=== PATIENT | female | born 1960 | race Caucasian/White ===

== ENCOUNTER 2017-11-12 15:00 | Outpatient (RCR) | payer OTHER, SELFPAY ==
--- NOTE | 2017-10-12 08:04 | HP.PTEVAL_ITS ---
Patient's Visit Information NESTOR SARGENT is a 56 year old F referred to Physical Therapy by DO JEFFREY Edge with a diagnosis of R knee pain. Date of Evaluation: 10/12/17 Physical Therapist: Sushil Russo DPT, [place] - Visit Plan Frequency: 3x /Week Duration: 4-6 Weeks Plan: 3x/week for 2-4 for. ROM adn activity modification R knee. strength without pain R knee and hip. ES and ice as needed. Pt to see Trevin for opinion. - Subjective Subjective: 2 months knee has been bothering her which is not uncommonintermittently. Had big Thanksgiving and something popped in knee and excruciating pain. Iced adn elevated for the weekend and to doctor Thursday. Did not get better so went back after Ayaz. Did x-ray and has OA and bone spurs. Pain is daily and worse when she is up and on it. Swells at times. 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 Doing all home activities adn ADLs they just hurt. Steps are hard as she has old two story and they are painful. Runs in-laws to doctor and that takes alot of week. very involved at [employer] and still does stuff but suffers throguhh it. 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 Sleep is interrupted early on abut not since meds - Pain R knee pain Pain Intensity (Out of 10): 0 Pain Intensity Range: 0, 5 - Objective R knee antalgia in gait, steps very painful on R. I with gait and transfers. R knee -4 to 118. L knee 0-138. Hip and ankle AROM WFL. Tender to touch lateral>medial R knee line anterior. Decent flexibility. - R knee scour. Slight + bounce home. Strength is 4/5 in knees and 4- in hips, has some pain with R knee resisted ext. ankle strength 4+/5 - Goals Goal 1:: Full aROM R knee without pain Goal Time Frame: 4-6 Weeks Goal 2:: R knee pain 0-1/10 at worst and 75% better overall. Goal Time Frame: 4-6 Weeks Goal 3:: I approp HEP Goal Time Frame: 4-6 Weeks - Rehabilitation Potential Physical Therapy Diagnosis: R knee OA vs meniscal Rehabilitation Potential: Questionable - Anticipated Interventions Patient/Client Instruction: Educate patient on: Condition For the Purpose of:: To decrease pain, To increase ROM Therapeutic Exercise to Include: Strength training, Passive ROM, Active ROM For the Purpose of:: To decrease pain, To increase ROM, To improve ability of physical actions for home/community/work/leisure TENS: Yes Cryotherapy (ice pack, ice massage): Yes For the Purpose of:: To decrease pain, To increase ROM Thank you for the opportunity to evaluate your patient. For Medicare and Medicare HMO plans, please review the plan of care and approve it. It will need to be FAXED BACK to us at [phone] for Medicare purposes. Please let me know if there are questions or concerns regarding this plan of care. Physician Signature: Date:
--- NOTE | 2017-11-12 15:25 | HP.PTDCSUM ---
HP - PT D/C Summary It has been my pleasure to treat NESTOR SARGENT under orders from Mehreen Lovell DO, for the diagnosis of R knee pain for a total of 7 visit(s). Discharge Date: 11/12/17 Please see the following information for a summary of their discharge status. - Subjective Subjective: So-so. Weather changes make knee sore. Otherwise doing OK. Has been busy the last few weeks. did not get in water 3x/week but two times per week the last two. Did exercises at home. Pain 2/10 most days without any pain meds. Injection helped a lot at first but was told she needs a knee replacement at some point. - Pain R knee pain Pain Intensity (Out of 10): 2 - Overall Improvement % Improvement: 85 - Objective Objective/Function: Full aROM but end range L flexion painful. Walks without antalgia. Steps are reciprocal but painful L especially ascending. Strength Hips 4+/5 and knees 4+/5 - Goals Goal 1:: Full aROM R knee without pain Goal Progress: Progressing Goal 2:: R knee pain 0-1/10 at worst and 75% better overall. Goal Progress: Not Progressing Goal 3:: I approp HEP Goal Progress: Goal Met Goal 4:: 95% better with pain no worse than 1/10 for a week prior to leaving on vacation Goal Progress: Progressing - Plan Plan: D/C to HEP - D/C Information Discharge Comments: Pt going on a cruise. Soreness has stabilized at 2/10. Will contact doctor if it worsens again or effects her ex/activities If there are questions or concerns regarding this patient's physical therapy, please feel free to call me at [phone]. Thank you for the referral of this patient. Sincerely, Sushil Russo, DPT, [place]
== END 2017-11-12 19:00 | disposition home or self-care (01) ==
LOC: PT 15:00
DX: M25.561 Pain in right knee (principal)
CPT/HCPCS: 97110; 97161; 97530

== ENCOUNTER → 2019-02-01 10:14 | Outpatient (CLI) | payer OTHER, SELFPAY ==
--- NOTE | 2019-02-01 10:21 | RAD_ITS ---
STUDY: X-RAY - LEFT ANKLE REASON FOR EXAM: Female, 58 years old. Pain, no known injury TECHNIQUE: 3 view(s) of the ankle. COMPARISON: None. FINDINGS: Normal visualized distal tibia and fibula. Normal medial and lateral malleoli. Normal tibiotalar articulation and ankle mortise. Normal visualized talus and calcaneus. The visualized subtalar, talonavicular, calcaneocuboid and tarsal articulations are normal. The soft tissue structures are unremarkable. RAD/Ankle min 3 Views IMPRESSION: Normal x-ray examination of the ankle. Electronically Signed: Valentin Otero MD at 23:45 EDT , Service support ,
== END ==
PROVIDERS: Referring Provider Podiatrist; Visit Provider Podiatrist
DX: M19.072 Primary osteoarthritis, left ankle and foot (principal)
CPT/HCPCS: 73610

== ENCOUNTER → 2021-05-15 07:36 | Outpatient (CLI) | payer OTHER, SELFPAY ==
--- NOTE | 2021-05-15 07:40 | BI_ITS ---
MAMMOGRAPHY - BILATERAL SCREENING REASON FOR EXAM: Female, 60 years old. Routine annual screening examination. PERTINENT HISTORY: Non-contributory. TECHNIQUE: Digital bilateral breast maury (3D mammographic acquisition) in the CC and MLO projections. 2-D mediolateral oblique (MLO) and craniocaudad (CC) views of both breasts were obtained. CAD: Full Field Digital Mammography with Computer Added Detection was performed. COMPARISON: Comparison is made with prior study dated 03/16/2017 and 05/16/2011. FINDINGS: Breast Composition: There are scattered areas of fibroglandular density. There are no dominant masses or suspicious calcifications. No other significant abnormalities are identified. There has been no significant change since the prior study. BI/SCRN MAMM (CAD)W/MAURY BILAT IMPRESSION: Stable bilateral screening mammogram. Yearly follow-up mammogram recommended. (A) ASSESSMENT CATEGORY: BIRADS Category 1: Negative. A letter regarding these results will be sent to the patient by the facility within 30 days. Approximately 10% of breast cancers are not detected by mammography. A normal mammogram should not delay biopsy of a clinically suspicious abnormality. [id number] Electronically Signed: Kevyn Tolliver MD at 8:19 EDT , Service support ,
== END ==
DX: Z12.31 Encounter for screening mammogram for malignant neoplasm of breast (principal)
CPT/HCPCS: 77063; 77067

== ENCOUNTER → 2023-12-14 | Outpatient (CLI) | payer MEDICARE, OTHER, SELFPAY ==
[2023-12-14 10:36] LABS: Mucous, Urine 0 SEEN /hpf (<or=2+)
[2023-12-14 10:48] LABS: Color, Urine Yellow (Yellow); Glucose, Dipstick Normal (Normal); Ketone-Dipstick Negative (Negative); Leukocyte Esterase-Dipstick 500 /ul (Negative); Nitrite-Dipstick Negative (Negative); Occult Blood-Urine 50 /ul (Negative); Protein-Dipstick 30 mg/dl (Negative); Specific Gravity, Urine 1.005 (1.002-1.030); Urine Bilirubin Dipstick Negative (Negative); Urine Clarity Sl. Cloudy (Clear); Urine Urobilinogen Normal (Normal)
[2023-12-14 11:35] LABS: Bacteria 1+ /hpf (None Seen); Red Blood Cells-Urine 0-5 SEEN /hpf (0-5); Squamous Epithelial Cells - UA 0-5 SEEN /hpf (5-10); White Blood Cells 25-50 SEEN /hpf (0-5)
== END | disposition home or self-care (01) ==
LOC: LABSPEC 10:29
PROVIDERS: Referring Provider Physician Assistant; Visit Provider Physician Assistant
DX: R30.0 Dysuria (principal)
CPT/HCPCS: 81001; 87086; 87088; 87186

== ENCOUNTER → 2024-05-12 | Outpatient (CLI) | payer MEDICARE, OTHER, SELFPAY ==
--- NOTE | 2024-05-12 14:52 | US_ITS ---
STUDY: RENAL ULTRASOUND - COMPLETE REASON FOR EXAM: Female, 63 years old. UTI TECHNIQUE: Ultrasound evaluation of the kidneys was performed with real-time and static tovar-scale imaging. COMPARISON: None. FINDINGS: RIGHT KIDNEY: Normal location of the right kidney, which is normal in size. The right kidney measures 11.0 cm. There is a normal cortex of the right kidney. The renal cortex measures 1.2 cm. There is no right renal mass or cyst. There are no right renal calculi. There is mild hydronephrosis of the right kidney. DISTAL RIGHT URETER: There is non-visualization of the distal right ureter. There is no demonstrated right ureterovesical junction calculus. There is a visualized right ureteral jet. LEFT KIDNEY: Normal location of the left kidney, which is normal in size. The left kidney measures 10.8 cm. There is a normal cortex of the left kidney. The renal cortex measures 1.4 cm. There is no left renal mass or cyst. There are no left renal calculi. There is mild hydronephrosis of the left kidney. DISTAL LEFT URETER: There is non-visualization of the distal left ureter. There is no demonstrated left ureterovesical junction calculus. There is a visualized left ureteral jet. BLADDER: The distended urinary bladder has a volume of 438 ml. The empty urinary bladder has a volume of 22 ml. There is a normal wall thickness of the distended urinary bladder. There is no demonstrated mass within the urinary bladder. There are no demonstrated bladder calculi. US/Kidney and Bladder IMPRESSION: Mild bilateral hydronephrosis to Electronically Signed: Juan Luis Del Valle MD at 13:33 EDT ,
== END | disposition home or self-care (01) ==
LOC: US 14:49
PROVIDERS: Referring Provider Urology; Visit Provider Urology
DX: N39.0 Urinary tract infection, site not specified (principal)
CPT/HCPCS: 76770

== ENCOUNTER → 2024-05-18 | Outpatient (CLI) | payer MEDICARE, OTHER, SELFPAY ==
[2024-05-18 15:32] LABS: Anion Gap 5 (5-15); BUN 16 mg/dL (7-18); Calcium,Total 8.8 mg/dL (8.5-10.1); Chloride 104 mmol/L (98-107); Creatinine, Serum 0.76 mg/dL (0.55-1.02); EST Glomerular Filtration Rate 81 mL/min (>60); Est Glom Filt Rate - Afr Amer 98 mL/min (>60); Glucose 87 mg/dL (74-106); Sodium Level 139 mmol/L (136-145)
== END | disposition home or self-care (01) ==
PROVIDERS: Referring Provider Urology; Visit Provider Urology
DX: N13.30 Unspecified hydronephrosis (principal)
CPT/HCPCS: 36415; 80048

== ENCOUNTER → 2024-06-07 | Outpatient (CLI) | payer MEDICARE, OTHER, SELFPAY ==
--- NOTE | 2024-06-07 08:21 | CT_ITS ---
STUDY: CT ABDOMEN AND PELVIS WITH AND WITHOUT CONTRAST REASON FOR EXAM: Female, 63 years old. Unspecified hydronephrosis. Chronic UTIs. RADIATION DOSAGE (If Supplied By Facility): CTDIvol = ( 25.21 ) mGy, DLP = ( 3754.80 ) mGycm TECHNIQUE: Transaxial images were obtained from the dome of the diaphragm to the symphysis pubis without oral contrast. IV 100mL Isovue-[id number] was administered. Sagittal and coronal images were reconstructed. Individualized dose optimization techniques were used for this CT. COMPARISON: None. FINDINGS: The visualized lung bases are unremarkable. The visualized portions of the heart are within normal limits. Multiple cysts are seen scattered throughout both the right and left lobes of the liver. Normal gallbladder and extrahepatic biliary system. Normal spleen. Normal pancreas. There is a 3.5 cm low-attenuation lesion in the left adrenal gland. This measures more than fat. This is not a typical adrenal adenoma. Correlation with MRI recommended Multiple bilateral parapelvic cysts. No evidence of hydronephrosis. Normal visualized stomach. Normal small intestine. Normal colon. The appendix is visualized and appears normal. There is scattered atherosclerotic calcification of the abdominal aorta, without a demonstrated aneurysm. Normal inferior vena cava. Normal retroperitoneum. Normal urinary bladder. Normal abdominal wall. Normal osseous structures. CT/CT Abd/Pelvis W/WO Contrast IMPRESSION: There is a 3.5 cm low-attenuation lesion in the left adrenal gland. This does not represent a typical adrenal adenoma, correlation with MRI is recommended. Multiple cysts are seen within the liver. Bilateral parapelvic renal cysts. Electronically Signed: Kevyn Tolliver MD at 13:57 EDT ,
== END | disposition home or self-care (01) ==
LOC: CT 08:20
PROVIDERS: Referring Provider Urology; Visit Provider Urology
DX: N13.30 Unspecified hydronephrosis (principal)
CPT/HCPCS: 74178; Q9967

== ENCOUNTER → 2024-07-05 | Outpatient (CLI) | payer MEDICARE, OTHER, SELFPAY ==
--- NOTE | 2024-07-05 06:45 | MRI_ITS ---
EXAM: MR ABDOMEN WITHOUT AND WITH INTRAVENOUS CONTRAST CLINICAL INDICATION: ADRENAL LESION, F/U TO ABNORMAL FINDING ON PRIOR CT TECHNIQUE: Multiplanar and multisequence MR images of the abdomen without and with intravenous contrast. CONTRAST: IV 19 cc Clariscan COMPARISON: CT abdomen and pelvis 06/07/2024 FINDINGS: LOWER THORAX: Normal. No pleural effusion. LIVER: Multiple liver cysts again seen. GALLBLADDER AND BILE DUCTS: Normal. No gallstones. No gallbladder distention or wall edema. No intra- or extrahepatic biliary ductal dilation. PANCREAS: Normal. No focal cystic or solid mass. SPLEEN: Normal. Normal size without focal cystic or solid mass. ADRENALS: 3.5 cm left adrenal mass is noted demonstrating loss of signal on the out of phase image consistent with lipid rich adenoma. Right adrenal gland is normal. KIDNEYS AND URETERS: Parapelvic renal cysts. No specific follow-up indicated. No hydronephrosis. INTRAPERITONEAL SPACE: Normal. No ascites or other fluid collection. No free air. VASCULATURE: Normal. Abdominal aorta is non-dilated. LYMPH NODES: No enlarged lymph nodes. MRI/MRI Abd WITH and W/O Contrast IMPRESSION: 1. 3.5 cm left adrenal lesion containing fat consistent with lipid rich adenoma. 2. Simple appearing hepatic and bilateral renal cysts. Electronically Signed: Manny Mills MD at 10:33 EDT ,
[2024-07-05 07:15] LABS: CREATININE FINGERSTICK < 1.0 mg/dL (0.55-1.02); EGFR FINGERSTICK > 60.0000 mL/min (>60)
== END | disposition home or self-care (01) ==
LOC: MRI 06:30
PROVIDERS: Referring Provider Urology; Visit Provider Urology
DX: E27.9 Disorder of adrenal gland, unspecified (principal)
CPT/HCPCS: 74183; A9575; A4216

== ENCOUNTER → 2024-08-05 | Outpatient (CLI) | payer MEDICARE, OTHER, SELFPAY ==
[2024-08-06 13:08] LABS: Adrenocorticotropic Hormone 2.5 pg/mL (7.2-63.3)
== END | disposition home or self-care (01) ==
PROVIDERS: Referring Provider Urology; Visit Provider Urology
DX: D35.02 Benign neoplasm of left adrenal gland (principal)
CPT/HCPCS: 36415; 82024; 82533

== ENCOUNTER → 2025-05-30 | Outpatient (CLI) | payer MEDICARE, OTHER, SELFPAY ==
--- NOTE | 2025-05-30 15:42 | CT_ITS ---
PROCEDURE: ABDOMEN WITHOUT IV CONTRAST 05/30/2025 REASON FOR EXAM: NEOPLASM OF UNCERTAIN BEHAVIOR OF LEFT ADRENAL GLAND TECHNIQUE: Procedure Code: CTABD Modality: CT Procedure: ABDOMEN WITHOUT IV CONTRAST No oral contrast. coronal and Sagittal reconstruction series were provided. One or more dose reduction techniques were used (e.g., Automated exposure control, adjustment of the mA and/or kV according to patient size, use of iterative reconstruction technique CONTRAST: None RADIATION DOSE SUMMARY: CTDlvol: 14 mGy DLP: 481 mGycm COMPARISON: June 07, 2024, July 05, 2024 FINDINGS: Noncontrast technique limits evaluation of the abdominal viscera. Lung bases: Clear Liver: Multiple bilobar hepatic cysts are seen. No change. Gallbladder: Partially contracted but otherwise normal. Spleen: Normal Pancreas: Normal Adrenals: Right adrenal is normal. Benign left adrenal adenoma 3.9 x 2.5 cm. Kidneys: Bilateral parapelvic cysts. No collecting system dilation. No solid mass or calculus. The cyst at the right mid to lower pole better seen on prior MRI. Bowel: Partially imaged small bowel is normal. A few scattered colonic diverticula are present without diverticulitis. Appendix is normal. Stomach is normal. Lymph nodes: None appear enlarged. Vasculature: Mild atherosclerosis without aneurysm. Peritoneum / Retroperitoneum: No free air, free fluid or mass. Bones: Lower lumbar facet hypertrophy. Grade 1 anterolisthesis L4 on L5. No pars defects. CT/Abdomen without IV Contrast IMPRESSION: 1. Benign liver cysts. No follow-up required. 2. Benign left adrenal adenoma. No follow-up required. 3. Diverticulosis without diverticulitis. 4. Parapelvic cysts of the kidneys are benign. Bosandrewk 1. No follow-up requi red. Reading Location: [id number]
== END | disposition home or self-care (01) ==
LOC: CT 15:40
PROVIDERS: Referring Provider Internal Medicine Endocrinology, Diabetes & Metabolism; Visit Provider Internal Medicine Endocrinology, Diabetes & Metabolism
DX: D44.12 Neoplasm of uncertain behavior of left adrenal gland (principal)
CPT/HCPCS: 74150